=== PATIENT | female | born 1945 | race Hispanic/Latino ===

== ENCOUNTER 2018-10-15 17:36 | Inpatient (IN) | payer SELFPAY ==
[~2018-10-15] VITALS: Ht 157.5 cm; Wt 84.4 kg
[2018-10-15] MEDS ORDERED: ACETAMINOPHEN 325 MG TAB PO STA (17:58)
[2018-10-15] MEDS ORDERED: SODIUM CHLORIDE 0.9% 1000 ML BAG IV ONE (18:00)
--- NOTE | 2018-10-15 18:35 | NUR ---
lactic on ice ready for oyster picker with bc x 2.
[2018-10-15] MEDS ORDERED: ACETAMINOPHEN 325 MG TAB ONE (18:45)
[2018-10-15] MEDS ORDERED: ONDANSETRON HCL INJ 2MG/ML 2ML 2 MG/ML VIAL ONE (18:46)
[2018-10-15] MEDS ORDERED: ONDANSETRON HCL INJ 2MG/ML 2ML 2 MG/ML VIAL IV STA (19:05)
[2018-10-15] MEDS ORDERED: SODIUM CHLORIDE 0.9% 1000ML 1,000 ML ONE (19:11)
--- NOTE | 2018-10-15 19:19 | Diagnostic Imaging Report ---
EXAMINATION: CXR 2 VIEW - HOPD INDICATION: Fever, altered level of consciousness COMPARISON: None FINDINGS: PA and lateral views TUBES and LINES: None. LUNGS: Lungs are well inflated. There is no evidence of pneumonia or pulmonary edema. PLEURA: No pleural effusion or pneumothorax. HEART AND MEDIASTINUM: The cardiomediastinal silhouette is unremarkable. BONES AND SOFT TISSUES: No focal osseous lesions. Soft tissues are unremarkable. UPPER ABDOMEN: No free air under the diaphragm. IMPRESSION: No acute thoracic abnormality. Signed by: Dr. Dulce Maria Conn MD on 10/15/2018 7:15 PM
--- NOTE | 2018-10-15 19:22 | NUR ---
reminded of need for ua.
--- NOTE | 2018-10-15 19:23 | NUR ---
report to augustine hahn. ivf's running. pt to admit. house sup notified of pending admission.
[2018-10-15] MEDS: SODIUM CHLORIDE 0.9% 1000ML 1,000 ML IV SCH ×2 (19:30→21:40)
--- NOTE | 2018-10-15 19:35 | NUR ---
[facility] called for transfer
[2018-10-15] MEDS ORDERED: CEFTRIAXONE SOD 1 GRAM/0.9% SOD CHL 50ML BAG IV STA (19:36)
[2018-10-15] MEDS ORDERED: CEFTRIAXONE SOD 1 GM VIAL ONE (19:41)
[2018-10-15] MEDS ORDERED: ONDANSETRON HCL INJ 2MG/ML 2ML 2 MG/ML VIAL IV PRN (19:45)
--- OUTSIDE RECORDS SUMMARY | 2018-10-15 19:46 | XMS REPORT ---
Author Author [facility] Address Unknown Phone Unavailable Care Team Providers Care [employer] Name Role Phone KRIS RIVERO Unavailable Unavailable Problems This patient has no known problems. Allergies, Adverse Reactions, Alerts This patient has no known allergies or adverse reactions. Medications This patient has no known medications. Results Test Description Test Time Test Comments Text Results Atomic Results Result Comments CXR 2 VIEW - HOPD 2018-10-15 19:15:00 [place] [address] Patient Name: THOR BOB MR #: [id number] : 1945 Age/Sex: 73/F Req #: [id number] Adm Physician: Ordered by: KRIS RIVERO MD Report #: [id number] Location: [facility] Room/Bed: Procedure: [id number] HOPD/CXR 2 VIEW - HOPD Exam Date: Exam Time: REPORT STATUS: Signed EXAMINATION: CXR 2 VIEW - HOPD INDICATION: Fever, altered level of consciousness COMPARISON: None FINDINGS: PA and lateral views TUBES and LINES: None. LUNGS: Lungs are well inflated. There is no evidence of pneumonia or pulmonary edema. PLEURA: No pleural effusion or pneumothorax. HEART AND MEDIASTINUM: The cardiomediastinal silhouette is unremarkable. BONES AND SOFT TISSUES: No focal osseous lesions. Soft tissues are unremarkable. UPPER ABDOMEN: No free air under the diaphragm. IMPRESSION: No acute thoracic abnormality. Signed by: Dr. Evangelist Conn MD on 10/15/2018 7:15 PM Dictated By: EVANGELIST CONN MD 14 Transcribed By: ARNAV on 10/15/181914 COPY TO: KRIS RIVERO MD
--- NOTE | 2018-10-15 19:59 | Diagnostic Imaging Report ---
History: Fever, disoriented Comparison studies: None Technique: Axial images were obtained from the skull base to the vertex. Coronal and sagittal reconstructions obtained from the axial data. Dose modulation, iterative reconstruction, and/or weight based adjustment of the mA/kV was utilized to reduce the radiation dose to as low as reasonably achievable. Findings: Scalp/skull: No abnormalities. No fractures, blastic or lytic lesions. Extra-axial spaces: No masses. No fluid collections. Brain sulci: Appropriate for age. Ventricles: Normal in size and configuration. No hydrocephalus. Parenchyma: Few hypodensities of the supratentorial white matter, nonspecific, most commonly seen in mild chronic microvascular ischemic changes. No masses, hemorrhage, acute or chronic cortical vascular insults. Sellar/suprasellar region: No abnormalities Craniocervical junction: Patent foramen magnum. No Chiari one malformation. Atherosclerotic calcifications of the carotid siphons. IMPRESSION: No acute abnormalities . Signed by: DR Maico Wiley M.D. on 10/15/2018 7:55 PM
[2018-10-15 21:13] VITALS: BP 101/62
--- NOTE | 2018-10-15 21:20 | NUR ---
RECEIVED PATIENT FROM STANDING ER AOX4, NO SIGNS OF RESPIRATORY DISTRESS NOTED. FAMILY MEMBERS ARE AT BEDSIDE, AND PATIENT COMPLAINED OF SLIGHT HEADACHE. BED IS LOCKED AND IN LOW POSITION, BOTH SIDE RAILS ARE UP, CALL LIGHT WITHIN REACH, WILL CONTINUE TO MONITOR.
[2018-10-15 22:04] VITALS: BP 101/62
[2018-10-15 22:13] VITALS: BP 101/62
[2018-10-16] VITALS (9 sets, daily range): BP systolic 91–129; BP diastolic 50–81
--- NOTE | 2018-10-16 00:50 | NUR ---
PATIENT RESTING IN BED BOTH EYES CLOSED, NO DISTRESS NOTED. FAMILY MEMBER IS PRESENT AT BEDSIDE, AND PATIENT NO LONGER COMPLAINS OF HEADACHE. BOTH SIDE RAILS ARE UP, CALL LIGHT WITHIN EASY REACH, WILL CONTINUE TO MONITOR.
[2018-10-16] MEDS: ACETAMINOPHEN 325 MG TAB PO PRN ×3 (01:00→11:15)
[2018-10-16] MEDS: SODIUM CHLORIDE 0.9% 1000ML 1,000 ML IV SCH ×2 (05:30→12:18)
--- NOTE | 2018-10-16 05:30 | NUR ---
PATIENT BEGAN TO HAVE CHILLS AND TEMPERATURE WAS 102.3. TYLENOL WAS GIVEN PROMPTLY, FAMILY MEMBER AT BEDSIDE, WILL CONTINUE TO MONITOR SITUATION.
--- NOTE | 2018-10-16 06:15 | NUR ---
RECHECKED PATIENT'S TEMPERATURE AND IT WAS STILL AT 102, SUPPLIED PATIENT WITH ICE PACKS TO COOL DOWN. PATIENT NO LONG HAS CHILLS, WILL CONTINUE TO MONITOR.
[2018-10-16 06:27] LABS: BASOPHILS % 0.2 % (0.0-1.0); HEMOGLOBIN 12.9 g/dL (12.0-16.0); LYMPHOCYTES # (AUTO) 0.4 (1.0-3.2); LYMPHOCYTES % 3.8 % (18.0-39.1); MEAN CORPUSCULAR HEMOGLOBIN 30.9 pg (28-32); MEAN CORPUSCULAR HGB CONC 34.9 g/dL (31-35); MEAN CORPUSCULAR VOLUME 88.7 fL (81-99); MONOCYTES # (AUTO) 0.6 (0.2-0.8); MONOCYTES % 5.9 % (4.4-11.3); NEUTROPHILS # (AUTO) 8.3 (2.1-6.9); NEUTROPHILS % 89.7 % (38.7-80.0); PLATELET COUNT 72 x10e3/uL (140-360); RED BLOOD COUNT 4.17 x10e6/uL (3.6-5.1); RED CELL DISTRIBUTION WIDTH 13.5 % (11.7-14.4)
[2018-10-16 06:50] LABS: ALANINE AMINOTRANSFERASE 35 IU/L (0-55); ALKALINE PHOSPHATASE 121 IU/L (40-150); ANION GAP 14.7 mmol/L (8-16); BLOOD UREA NITROGEN 15 mg/dL (7-26); BUN/CREATININE RATIO 19 (6-25); CALCIUM 8.7 mg/dL (8.4-10.2); CARBON DIOXIDE 24 mmol/L (22-29); CHLORIDE 102 mmol/L (98-107); CREATININE, SERUM 0.79 mg/dL (0.57-1.11); EST GLOMERULAR FILTRATION RATE > 60 ML/MIN (60-); GLUCOSE 106 mg/dL (74-118); POTASSIUM 3.7 mmol/L (3.5-5.1); SODIUM 137 mmol/L (136-145)
--- NOTE | 2018-10-16 06:56 | NUR ---
PATIENT'S TEMPERATURE IS NOW AT 101.6, PATIENT DISPLAYS NO MORE CHILLS AND VOICES THAT SHE FEELS FINE AND NO LONGER COLD. ICE PACKS ARE STILL BEING USED FOR PATIENT. CONTINUING TO MONITOR.
--- NOTE | 2018-10-16 07:30 | NUR ---
ON BEDSIDE ROUNDS PT C/O HEADACHE AND WAS INFORM THE TYLENOL THAT WAS GIVE SHOULD HELP THAT ALONG WITH HER ELEVATED TEMP 101.6
--- NOTE | 2018-10-16 08:45 | NUR ---
TEMP IS NOW 99.8 AND HER HEADACHE IS BETTER AT THIS TIME. FAMILY AT BEDSIDE.
--- NOTE | 2018-10-16 11:20 | NUR ---
LAB JUST CALLED ABOUT BC- GRAM NEG RODS NOTED.
--- NOTE | 2018-10-16 12:18 | NUR ---
CALL PLACED TO DR BOUDREAUX ABOUT ELEVATED TEMP AND POSITIVE BC
[2018-10-16] MEDS: CEFEPIME 2 GM/NS 0.9% 100 ML 100 ML IV SCH (13:01)
[2018-10-16] MEDS ORDERED: ATENOLOL50 MG PO (15:01)
[2018-10-16] MEDS ORDERED: HYDROCHLOROTH12.5 M1 PO (15:01)
[2018-10-16] MEDS ORDERED: PROPAFENONE HC325 MG PO (15:01)
[2018-10-16] MEDS ORDERED: PROPAFENONE HCL SR 325 MG CAPCR PO SCH (15:30)
[2018-10-16] MEDS ORDERED: PROPAFENONE HCL 150 MG TAB PO SCH (15:32)
--- NOTE | 2018-10-16 17:00 | NUR ---
DR BROWN TO SEE PT. NEW ORDERS RECEIVED.
--- NOTE | 2018-10-16 18:06 | NUR ---
GAVE PACKET OF INFORMATION WITH [facility] [employer] FOR ASSISTANCE WITH LOW TO NO INCOME TO PATIENT. RESOURCES THAT PATIENT MAY BE ABLE TO FOLLOW UP UPON DISCHARGE. PT EDUCATED ON EACH RESOURCE AND UNDERSTANDING HOW TO FOLLOW UP TO SEE IF QUALIFIED FOR EACH RESOURCE.
--- NOTE | 2018-10-16 18:35 | NUR ---
PT DOWN VIA WC TO RADIOLOGY
--- NOTE | 2018-10-16 18:52 | NUR ---
PT BACK FROM CT.
--- NOTE | 2018-10-16 19:10 | NUR ---
BS rounds completed with morning nurse. Pt alert to name. Lying in bed HOB 75 degrees. Denies pain at this time. Family at bedside. Call christianson within reach. Will continue to monitor.
--- NOTE | 2018-10-16 20:41 | Diagnostic Imaging Report ---
EXAM: CT Abdomen and Pelvis WITH contrast INDICATION: ^r/o infection ^[id number] ^1830 COMPARISON: None. TECHNIQUE: Abdomen and pelvis were scanned utilizing a multidetector helical scanner from the lung base to the pubic symphysis after administration of IV contrast. Coronal and sagittal reformations were obtained. Routine protocol was performed. Scan was performed when during portal venous phase. IV CONTRAST: 100 mL of Isovue-370 ORAL CONTRAST: None RADIATION DOSE: Total DLP: 645 mGy*cm Estimated effective dose: (DLP x 0.015 x size factor) mSv COMPLICATIONS: None FINDINGS: LINES and TUBES: None. LOWER THORAX: Unremarkable HEPATOBILIARY: Multiple water attenuation hepatic cysts measuring up to 6.9 cm. No biliary ductal dilation. GALLBLADDER: No radio-opaque stones or sludge. No wall thickening. SPLEEN: No splenomegaly. PANCREAS: No focal masses or ductal dilatation. ADRENALS: No adrenal nodules KIDNEYS/URETERS: Kidneys enhance symmetrically. No hydronephrosis. No cystic or solid mass lesions. No stones. GI TRACT: No abnormal distention, wall thickening, or evidence of bowel obstruction. Appendix is not visualized. PELVIC ORGANS/BLADDER: Unremarkable. LYMPH NODES: No lymphadenopathy. VESSELS: Mild atherosclerotic calcification of the abdominal aorta without aneurysm. PERITONEUM / RETROPERITONEUM: No free air or fluid. BONES: Unremarkable. SOFT TISSUES: Right lateral ventral hernia measuring 4.2 cm the neck with mild protrusion of nondilated loops of ascending colon. IMPRESSION: No fluid collections or abscesses in the abdomen or pelvis. Multiple low-attenuation hepatic cysts. Right lateral ventral hernia containing nondilated ascending colon. Signed by: Dr. Delfina Muir M.D. on 10/16/2018 8:38 PM
[2018-10-16] MEDS: PROPAFENONE HCL 150 MG TAB PO SCH (21:48)
--- NOTE | 2018-10-16 21:55 | NUR ---
Pt transferred to room 185 via wc. Report given to OBS nurse. Pt no active distress. Family at side.
--- NOTE | 2018-10-16 22:00 | NUR ---
INITIAL ASSESSMENT COMPLETE, PT TRANSFERED FROM MS3, IV INTACT, NO TELE, ORIENTED TO ROOM, FAMILY CAN SPEAK SCOTTISH, PT SPEAKS ONLY GERMAN, CALL LIGHT IN REACH, VS STABLE, NO DISTRESS NOTED, TOLD TO CALL FOR NEEDS, IV FLUIDS RUNNING
[2018-10-16] MEDS ORDERED: SODIUM CHLORIDE 0.9% 50ML 50 ML ONE (22:18)
[2018-10-16] MEDS ORDERED: IOPAMIDOL 370 MG/ML 200 ML INFUS..BTL INJ ONE (22:18)
--- NOTE | 2018-10-16 22:45 | History and Physical ---
HISTORY OF PRESENT ILLNESS: The patient is a 73-year-old female with no past medical history for anemia, hypertension, liver disease, came here with fever. The patient was found to have a gram-negative growing in the blood culture, admitted to the hospital. REVIEW OF SYSTEMS: CARDIOVASCULAR: No chest pain or palpitation. RESPIRATORY: No shortness of breath. No cough. GASTROINTESTINAL: No nausea or vomiting. No diarrhea. GENITOURINARY: No frequency. No dysuria. ALLERGIES: NOT ALLERGIC TO ANYTHING. PAST MEDICAL HISTORY: Positive for hypertension, arrhythmia, liver disease. SOCIAL HISTORY: She does not smoke. She does not drink. PHYSICAL EXAMINATION: VITAL SIGNS: Blood pressure 92/55, temperature 101.6, heart rate 80 per minute, respiratory rate 18 per minute, oxygen saturation 96%. HEART: Showed regular rhythm. Normal S1, S2 sound. LUNGS: Clear bilaterally. ABDOMEN: Soft. EXTREMITIES: Show no evidence of cyanosis or hematoma. LABORATORY DATA: On the BMP, sodium 137, potassium 3.7, chloride 102, CO2 of 24, BUN 15, creatinine 0.79, glucose 106. On the CBC, white blood count 9.26, hemoglobin 12.9, hematocrit 37.0, platelet count 72,000. AST 41, ALT 35, total bilirubin 1.4, alkaline phosphatase 121. IMPRESSION: 1. Sepsis . 2. Hypertension. 3. Elevated liver function tests. 4. History of cardiac arrhythmia. PLAN OF TREATMENT: Continue with the following IV antibiotics, cefepime 2 g IV twice a day, normal saline at 125 mL an hour, Tylenol 650 mg q.4 hours as needed for pain or fever. Continue Zofran 4 mg IV q.4 hours as needed. We are going to also order a liver ultrasound because the patient does have a history of liver disease and the LFTs are elevated. We are going to consult . from Infectious Diseases. We are going to repeat the complete metabolic panel tomorrow. I am going to also order hepatitis profile, antinuclear antibodies. We are going to repeat liver function test tomorrow. MD GLENN Jimenez/MODL /[id number]
[2018-10-17] VITALS (7 sets, daily range): BP systolic 94–147; BP diastolic 57–74
--- NOTE | 2018-10-17 01:21 | Consultation ---
DATE OF CONSULTATION: REASON FOR CONSULTATION: Fever and chills. HISTORY OF PRESENT ILLNESS: This patient is a very pleasant 73-year-old white female, denies any past medical history. She also has high blood pressure. She has history of arrhythmia. The patient apparently was in her usual state of condition until couple of days ago without fever, chills, not feeling well, came to the emergency room for feeling bad. PAST MEDICAL HISTORY: Obesity, hypertension and arrhythmia. PAST SURGICAL HISTORY: Denies. ALLERGIES: NKA. SOCIAL HISTORY: There is no smoking, drug abuse or alcohol abuse. FAMILY HISTORY: Noncontributory. REVIEW OF SYSTEMS: At the present time, HEENT: Negative. PULMONARY: Negative. CARDIAC: Negative. : Negative. SKIN: There are no other rashes. LABORATORY DATA: Reviewed. White count 9.25. Her sodium 137, potassium 3.2, creatinine 0.79, bilirubin 1.4. Blood cultures showing gram-negative rods. PHYSICAL EXAMINATION: GENERAL: She is currently alert, oriented, does not seem to be in acute distress. VITAL SIGNS: Stable, currently afebrile. HEENT: She is not icteric. NECK: Supple. CHEST: Clear. HEART: S1, S2. No S3, S4 or murmur. ABDOMEN: Soft. Bowel sounds present. No tenderness. EXTREMITIES: No edema. SKIN: There is no rash. IMPRESSION: 1. Sepsis with gram-negative, elevated liver enzyme. Agree with cefepime. We will obtain abdomen and pelvis CAT scan with contrast. Source abdomen, but not so sure if it is pyelonephritis with her other, elevated bilirubin. 2. Obesity. 3. Hypertension. 4. We will follow with you. Thank you for asking me to see this patient. Further recommendations to follow. MD AUGUST Gibbons/BRYANNA /[id number]
[2018-10-17] MEDS: CEFEPIME 2 GM/NS 0.9% 100 ML 100 ML IV SCH ×2 (01:30→13:50)
[2018-10-17 06:20] LABS: ALANINE AMINOTRANSFERASE 38 IU/L (0-55); ALBUMIN 2.9 g/dL (3.5-5.0); ALBUMIN/GLOBULIN RATIO 0.9 (0.8-2.0); ALKALINE PHOSPHATASE 118 IU/L (40-150); ANION GAP 12.9 mmol/L (8-16); BLOOD UREA NITROGEN 10 mg/dL (7-26); BUN/CREATININE RATIO 13 (6-25); CARBON DIOXIDE 27 mmol/L (22-29); CHLORIDE 105 mmol/L (98-107); CREATININE, SERUM 0.75 mg/dL (0.57-1.11); EST GLOMERULAR FILTRATION RATE > 60 ML/MIN (60-); GLUCOSE 77 mg/dL (74-118); POTASSIUM 3.9 mmol/L (3.5-5.1); SODIUM 141 mmol/L (136-145)
[2018-10-17 06:29] LABS: BILIRUBIN,URINE NEGATIVE (NEGATIVE); CLARITY,URINE CLEAR (CLEAR); COLOR,URINE YELLOW (YELLOW); KETONES,URINE 1+ (NEGATIVE); LEUKOCYTE ESTERASE ,URINE NEGATIVE (NEGATIVE); NITRITE,URINE NEGATIVE (NEGATIVE); PROTEIN,URINE DIPSTICK NEGATIVE (NEGATIVE); URINE UROBILINOGEN 1 mg/dL (0.2 - 1)
[2018-10-17 06:49] LABS: BACTERIA,URINE MODERATE /HPF; EPITHELIAL CELLS,URINE MODERATE /LPF
[2018-10-17] MEDS: SODIUM CHLORIDE 0.9% 1000ML 1,000 ML IV SCH ×2 (07:22→15:56)
--- NOTE | 2018-10-17 07:28 | NUR ---
RECEIVED PATIENT RESTING IN BED NO S/S OF DISTRESS. FAMILY AT BEDSIDE. BED LOW, WHEELS LOCKED, SIDE RAILS X2. CALL LIGHT IN REACH WILL CONTINUE TO MONITOR PATIENT.
[2018-10-17] MEDS: HYDROCHLOROTHIAZIDE 25 MG TAB PO SCH (08:14)
[2018-10-17] MEDS: ACETAMINOPHEN 325 MG TAB PO PRN (08:14)
[2018-10-17] MEDS: PROPAFENONE HCL 150 MG TAB PO SCH ×2 (08:14→20:30)
[2018-10-17] MEDS: ATENOLOL 50 MG TAB PO SCH (08:14)
[2018-10-17] MEDS ORDERED: NON-FORMULARY MEDICATION (Hydrochlorothiazide 12.5 MG) PO SCH (09:00)
--- NOTE | 2018-10-17 10:00 | NUR ---
PATIENT A/O X3, EVEN RESPIRATIONS ON RA. BOWEL SOUNDS ACTIVE, SKIN INTACT, NO EDEMA. LUNG SOUNDS CLEAR TO AUSCULTATION. LEFT AC AND RIGHT FA IV. IVF TO RIGHT FA. IV INTACT AND PATENT. NS @ 125 CC/HR. PATIENT AMBULATES WITH STANDBY ASSIST. VITAL SIGNS STABLE. FAMILY AT BEDSIDE. CALL LIGHT IN REACH WILL CONTINUE TO MONITOR PATIENT.
--- NOTE | 2018-10-17 14:29 | NUR ---
PATIENT COMPLAINT OF PAIN TO IV SITE. LEFT AC IV REMOVED, CATHETER TIP INTACT ON REMOVAL AND PRESSURE DRESSING APPLIED.
--- NOTE | 2018-10-17 15:57 | Diagnostic Imaging Report ---
Right upper quadrant abdominal ultrasound, 10/17/2018. History: Abnormal LFTs. Comparison: CT abdomen 10/16/2018. Discussion: Transverse and longitudinal images of the right upper quadrant of the abdomen were obtained demonstrating a mildly enlarged liver with increased echogenicity measuring 18.9 cm in length. Multiple oval anechoic structures are present throughout both lobes of the liver, largest in the left lobe measuring 3.6 x 3.3 x 3 cm and the largest in the right lobe measuring 7.2 x 6.6 x 8.2 cm. There is no evidence of a solid mass. The portal vein is patent with hepatopetal flow and is within normal limits measuring 7 mm in diameter. The biliary tree is within normal limits with the common bile duct measuring 2 mm in diameter. The gallbladder is normal without evidence of stones, wall thickening or pericholecystic fluid. The sonographic Garcia's sign was negative. The right kidney is normal in size and echogenicity without evidence of hydronephrosis, stones, or mass and measures 11.1 cm in length. The pancreatic <body and tail> are visualized and are normal in appearance. The abdominal aorta is within normal limits. There is no evidence of free fluid. IMPRESSION: Mild hepatomegaly with increased echogenicity suggestive of fatty infiltration and and multiple simple hepatic cysts. Signed by: Avni Prakash on 10/17/2018 3:54 PM
--- NOTE | 2018-10-17 16:25 | Progress Note ---
DATE: Internal Medicine Progress Note SUBJECTIVE: She is doing well. No significant complaint. PHYSICAL EXAMINATION: VITAL SIGNS: Blood pressure 94/58, temperature 36.8, heart rate 53 per minute, respiratory rate 20 per minute, and oxygen saturation 96%. HEART: Showed regular rhythm. Normal S1 and S2 sound. LUNGS: Clear bilaterally. ABDOMEN: Soft. EXTREMITIES: Show no evidence of cyanosis or hematoma. FINAL IMPRESSION: 1. Gram-negative bacteremia. 2. Hypertension. PLAN OF TREATMENT: Continue cefepime 2 g IV twice a day. Continue following the blood culture to see what bacteria she has and what sensitivity to antibiotic it has. We are going to cut down on the normal saline. Continue Tylenol 650 mg p.o. q.4 hours as needed for pain or fever, Zofran 4 mg IV q.4 hours as needed for vomiting, atenolol 50 mg daily, and propafenone 150 mg twice a day. She is on hydrochlorothiazide 12.5 mg daily. MD GLENN Jimenez/BRYANNA /[id number]
[2018-10-18] MEDS: ACETAMINOPHEN 325 MG TAB PO PRN
[2018-10-18] MEDS: SODIUM CHLORIDE 0.9% 1000ML 1,000 ML IV SCH (00:17)
[2018-10-18] MEDS: CEFEPIME 2 GM/NS 0.9% 100 ML 100 ML IV SCH (01:30)
--- NOTE | 2018-10-18 02:23 | NUR ---
Received report from PM nurse. Patient resting quitly at this time.
[2018-10-18 04:07] VITALS: BP 138/63
--- NOTE | 2018-10-18 06:39 | NUR ---
Patient resting quitly at this time.
--- NOTE | 2018-10-18 06:50 | NUR ---
rounded with night time nanny nurse, patient resting comfortably with daughter at bedside. call christianson within reach and bed in lowest position.
[2018-10-18 07:24] VITALS: BP 147/67
[2018-10-18 07:39] VITALS: BP 147/67
[2018-10-18] MEDS: PROPAFENONE HCL 150 MG TAB PO SCH (08:10)
[2018-10-18] MEDS: HYDROCHLOROTHIAZIDE 25 MG TAB PO SCH (08:10)
[2018-10-18] MEDS: ATENOLOL 50 MG TAB PO SCH (08:10)
[2018-10-18] MEDS ORDERED: CIPRO500 MG PO (10:50)
--- NOTE | 2018-10-18 11:05 | NUR ---
patient alert and oriented with daughter at bedside. discharge instructions given at this time, both verbalized understanding. IV discontinued, catheter in tact and pressure dressing applied. patient to be wheeled out to personal auto for daughter to drive home
--- NOTE | 2018-10-19 07:35 | Discharge Summary ---
HISTORY: A 73-year-old female, who came with fever. She was found to have E coli in in the blood culture, started IV antibiotics. She is feeling much, much better now. Fever is gone. White blood count is back to normal. The patient might be able to be discharged today if okay with Dr. Rayo, infectious Disease bank consultant. PHYSICAL EXAMINATION: EXTREMITIES: Show no evidence of cyanosis or hematoma. LUNGS: Clear. HEART: Showed regular rhythm. VITAL SIGNS: Blood pressure 147/67, temperature 97.5, heart rate 69 per minute, respiratory rate 18 per minute, oxygen saturation 97%. IMPRESSION: 1. Bacteremia with Escherichia coli. 2. Hypertension. PLAN OF TREATMENT: The patient is going to be discharged on antibiotic as per Dr. Rayo. He will prescribe oral antibiotic. In the meantime, continue atenolol 50 mg daily, hydrochlorothiazide 12.5 mg daily, propafenone 150 mg daily twice a day. Follow up with her primary care physician. Discharge if okay with Dr. aRyo. MD GLENN Jimenez/BRYANNA /[id number]
== END 2018-10-18 11:55 | disposition home or self-care (01) | DRG 872 ==
LOC: FSED 17:36 → ERHOLD 19:41 → MED/SURG3 20:57 → IMCU 10-16 22:12 → OBSVTOIN 10-17 14:24
PROVIDERS: ADMIT Internal Medicine; ATTEND Internal Medicine
DX: A41.50 Gram-negative sepsis, unspecified (principal); I10 Essential (primary) hypertension; K76.9 Liver disease, unspecified; E66.9 Obesity, unspecified; Z68.34 Body mass index [BMI] 34.0-34.9, adult; B96.20 Unspecified Escherichia coli [E. coli] as the cause of diseases classified elsewhere
CPT/HCPCS: 36415; 70450; 71046; 74177; 76705; 80048; 80053; 80076; 81001; 81003; 82390; 82553; 83540; 83605; 84484; 85025; 86039; 86255; 87040; 87071; 87086; 87186; 87205; 87400; 93005; 96360; 99284; G0378; J0696; J2405; J7030; Q9967